=== PATIENT | male | born 1965 | race Two or more races ===

== ENCOUNTER 2017-09-23 07:13 | Day surgery (SDC) | payer OTHER ==
[~2017-09-23] VITALS: Ht 177.8 cm; Wt 88.0 kg
[2017-09-23 07:37] VITALS: BP 125/83
[2017-09-23 10:45] VITALS: BP 133/95
== END 2017-09-23 11:35 | disposition home or self-care (01) ==
LOC: GI 07:13 → OR 08:30 → GI 11:35
PROVIDERS: Internal Medicine Gastroenterology
PROC: 06LY4CC Occlusion of Hemorrhoidal Plexus with Extraluminal Device, Percutaneous Endoscopic Approach (ICD-10-PCS; principal; 2017-09-23 08:30)
DX: K64.8 Other hemorrhoids (principal); K59.00 Constipation, unspecified; K57.30 Diverticulosis of large intestine without perforation or abscess without bleeding; Z86.61 Personal history of infections of the central nervous system; Z68.27 Body mass index [BMI] 27.0-27.9, adult
CPT/HCPCS: 45378; 46221; J1200; J1610; J2250; J2310; J3010; J3490